=== PATIENT | male | born 1955 | race Caucasian/White ===

== ENCOUNTER 2019-03-23 19:27 | Emergency (ER) | payer OTHER ==
[2019-03-23 19:35] VITALS: BP 146/69; PULSE 85; TEMP 98.2; BMI 32.9
[2019-03-23] MEDS ORDERED: ACETAMINOPHEN 500 MG TABLET (FP) PO ONE (19:58)
--- NOTE | 2019-03-23 19:58 | PDOC ---
Documentation entered by Alexei Feliz SCRIBE, acting as scribe for Danica Burks MD. Danica Burks MD: This documentation has been prepared by the Tray ellis Nirvannie, SCRIBE, under my direction and personally reviewed by me in its entirety. I confirm that the documentation accurately reflects all work, treatment, procedures, and medical decision making performed by me. History of Present Illness - General Chief Complaint: Injury Stated Complaint: INJURY Time Seen by Provider: 03/23/19 19:37 History Source: Patient Exam Limitations: No Limitations - History of Present Illness Initial Comments: 03/23/19 20:07 HPI: The patient is a 64 year old male, with a significant past medical history of spinal fusion (C1-C3), who presents to the emergency department s/p fall with mild discomfort described as a twinge to the neck. As per patient, he was in a reclining chair at home theater at which time he was trying to lean backwards and the chair tipped over and he subsequently fall down from approximately 2 feet. He denies any LOC, dizziness, headache, disorientation, nausea, or vomiting. He denies any recent diarrhea or constipation. He denies any recent chest pain or shortness of breath. He denies any recent dysuria, frequency, urgency or hematuria. PAST MEDICAL HISTORY: no significant history PAST SURGICAL HISTORY: no significant history FAMILY HISTORY: no pertinent history SOCIAL HISTORY: Pt lives with family and is employed. MEDICATIONS: reviewed ALLERGIES: As per nursing notes ROS: General: No fevers or chills, no weakness, no weight loss HEENT: No change in vision. No sore throat,. No ear pain CardioVascular: No chest pain or shortness of breath Respiratory:No cough, or wheezing. Gastrointestinal: no nausea, vomiting, diarrhea or constipation, No rectal bleeding Genitourinary: No dysuria, hematuria, or frequency Musculoskeletal: +Mild neck pain. No joint pain or swelling Neurologic: No headache, vertigo, dizziness or loss of consciousness Psychiatric: nor depression Skin: No rashes or easy bruising Endocrine: no increased thirst or abnormal weight change Allergic: no skin or latex allergy All other systems reviewed and normal Physical Exam: GENERAL: The patient is awake, alert, and fully oriented, in no acute distress. HEAD: Normal with no signs of trauma. No scalp tenderness. NECK: Mild paraspinal cervical tenderness. No midline tenderness. EYES: Pupils equal, round and reactive to light, extraocular movements intact, sclera anicteric, conjunctiva clear. EXTREMITIES: Normal range of motion, no edema. NEUROLOGICAL: Normal speech, normal gait. PSYCH: Normal mood, normal affect. SKIN: Warm, Dry, normal turgor, no rashes or lesions noted. Past History - Past Medical History Allergies/Adverse Reactions: Allergies Allergy/AdvReac Type Severity Reaction Status Date / Time No Known Allergies Allergy Verified 08/05/16 10:56 Home Medications: Ambulatory Orders No Known Home Medication 08/05/16 Anemia: No Asthma: No Cancer: No Cardiac Disorders: No CVA: No COPD: No CHF: No Dementia: No Diabetes: No GI Disorders: No Disorders: No HTN: No Hypercholesterolemia: No Liver Disease: No Seizures: No Thyroid Disease: No - Surgical History Abdominal Surgery: No Appendectomy: No Cardiac Surgery: No Cholecystectomy: No Lung Surgery: No Neurologic Surgery: No Orthopedic Surgery: No - Psycho Social/Smoking Cessation Hx Smoking History: Unknown if ever smoked Have you smoked in the past 12 months: No Information on smoking cessation initiated: No Hx Alcohol Use: Yes (ONCE PER WEEK) Drug/Substance Use Hx: Yes Substance Use Type: Alcohol Hx Substance Use Treatment: No *Physical Exam - Vital Signs Last Vital Signs Temp Pulse Resp BP Pulse Ox 98.2 F 85 16 146/69 95 03/23/19 19:30 03/23/19 19:30 03/23/19 19:30 03/23/19 19:30 03/23/19 19:30 Discharge - Discharge Information Problems reviewed: Yes Clinical Impression/Diagnosis: Cervical strain, acute Qualifiers: Encounter type: initial encounter Qualified Code(s): S16.1XXA - Strain of muscle, fascia and tendon at neck level, initial encounter Condition: Stable Disposition: HOME - Admission No - Follow up/Referral Referrals: Sina Vallecillo [Primary Care Provider] - - Patient Discharge Instructions Additional Instructions: Tylenol or Motrin as needed for neck discomfort or pain. Return to the emergency department immediately with ANY new, persistent or worsening symptoms. Continue any medications as previously prescribed by your physician. You should follow up with your primary doctor as soon as possible regarding today's emergency department visit. . Please make sure your doctor reviews the results of your emergency evaluation. Thank you for coming to the Emergency Department today for your care. It was a pleasure to see you today. Please note that your evaluation is INCOMPLETE until you follow-up with your doctor. - Post Discharge Activity
[2019-03-23] MEDS ORDERED: ACETAMINOPHEN 500 MG TABLET (FP) ONE (20:04)
== END 2019-03-23 20:07 | disposition home or self-care (01) ==
LOC: FER 19:27
DX: S16.1XXA Strain of muscle, fascia and tendon at neck level, initial encounter (principal); Z98.1 Arthrodesis status; W07.XXXA Fall from chair, initial encounter; Y93.89 Activity, other specified; Y92.9 Unspecified place or not applicable
CPT/HCPCS: 99282-25

== ENCOUNTER 2019-05-17 03:24 | Emergency (ER) | payer OTHER ==
--- NOTE | 2019-05-17 03:29 | PDOC ---
History of Present Illness - General Chief Complaint: Injury Stated Complaint: R ANKLE PAIN Time Seen by Provider: 05/17/19 03:27 - History of Present Illness Initial Comments: 05/17/19 03:48 This 64-year-old man with a history of cervical spinal fusion but no other significant past medical history presents with injury to his right ankle: Approximately 6 hours prior to presentation he slipped on icy surface, turning his right ankle as he fell. Although patient was able to walk on the ankle just after he was injured, he has had increasing pain and swelling in the area throughout the evening. No previous history of lower extremity sprain or fracture. No other significant injury sustained today. Patient denies loss of consciousness or neck injury Past History - Past Medical History Allergies/Adverse Reactions: Allergies Allergy/AdvReac Type Severity Reaction Status Date / Time No Known Allergies Allergy Verified 08/05/16 10:56 Home Medications: Ambulatory Orders No Known Home Medication 08/05/16 Anemia: No Asthma: No Cancer: No Cardiac Disorders: No CVA: No COPD: No CHF: No Dementia: No Diabetes: No GI Disorders: No Disorders: No HTN: No Hypercholesterolemia: No Liver Disease: No Seizures: No Thyroid Disease: No - Surgical History Abdominal Surgery: No Appendectomy: No Cardiac Surgery: No Cholecystectomy: No Lung Surgery: No Neurologic Surgery: No Orthopedic Surgery: No - Psycho Social/Smoking Cessation Hx Smoking History: Unknown if ever smoked Have you smoked in the past 12 months: No Hx Alcohol Use: Yes (ONCE PER WEEK) Drug/Substance Use Hx: Yes Substance Use Type: Alcohol Hx Substance Use Treatment: No Review of Systems - Review of Systems Able to Perform ROS?: Yes Comments:: 12 point review of systems is negative except for what is noted in the history of present illness *Physical Exam - Physical Exam GENERAL: Adult male, alert and oriented x3, in no acute distress HEAD: Normal with no signs of trauma. EYES: PERRLA, EOMI, sclera anicteric, conjunctiva clear. EXTREMITIES: Right lower extremitymarked edema lateral malleolus ankle with faint ecchymosis; tenderness medial to and proximal to edematous area No ligamentous instability of ankle joint No tenderness/edema/ecchymosis at base of fifth metatarsal bone Remainder the extremity exam is normal NEUROLOGICAL: Cranial nerves II through XII grossly intact. Normal speech. No focal neurological deficits. MUSCULOSKELETAL: Back non-tender to palpation, no CVA tenderness SKIN: Warm, Dry, normal turgor, no rashes or lesions noted. ED Progress Note - Progress Note Progress Note: Right ankle x-ray performed: Minimally displaced oblique distal fibula fracture present (interpreted by Dr. Barroso of the radiology staff) Posterior leg splint fashioned from Ortho-Glass material and secured with Luis wraps. Distal neurovascular functioning intact after placement of splint. Crutches were fitted to the patient and he was given crutch walking instruction. Referral information for the [facility] provided for the patient. He should contact them later on today and arrange for follow-up within the next 48 hours. Discharge - Discharge Information Problems reviewed: Yes Clinical Impression/Diagnosis: Ankle fracture, right Qualifiers: Encounter type: initial encounter Fracture type: closed Qualified Code(s): S82.891A - Other fracture of right lower leg, initial encounter for closed fracture Condition: Stable Disposition: HOME - Follow up/Referral Referrals: Sina Vallecillo [Primary Care Provider] - Chong Alexandra MD [Staff Physician] - Call tomorrow - Patient Discharge Instructions Patient Printed Discharge Instructions: Ankle Fracture Additional Instructions: Keep splint in place, as dry as possible Elevation/ice to right ankle is much as possible for the next 2 days Crutches for ambulation until seen by orthopedist Call orthopedic group () later this morning arrange follow-up within the next 48 hours Ibuprofen/acetaminophen as needed for pain - Post Discharge Activity
[2019-05-17 03:34] VITALS: BP 128/80; PULSE 100; TEMP 98.6; BMI 31.3
== END 2019-05-17 06:42 | disposition home or self-care (01) ==
LOC: FER 03:24
PROC: 2W3QX1Z Immobilization of Right Lower Leg using Splint (ICD-10-PCS; principal; 2019-05-17)
DX: S82.891A Other fracture of right lower leg, initial encounter for closed fracture (principal); W01.10XA Fall on same level from slipping, tripping and stumbling with subsequent striking against unspecified object, initial encounter; Y93.01 Activity, walking, marching and hiking; Y92.89 Other specified places as the place of occurrence of the external cause
CPT/HCPCS: 73610-TC-RT-FY; 99283-25

== ENCOUNTER 2019-05-25 06:31 | Day surgery (SDC) | payer OTHER ==
[2019-05-24 14:05] VITALS: BMI 31.3
[2019-05-25] MEDS ORDERED: MIDAZOLAM HCL 2 MG/2 ML SINGLE DOSE VIAL ONE ×3 (06:54→09:21)
[2019-05-25] MEDS ORDERED: BUPIVACAINE HCL/PF 0.5% (5 MG/ML) 30 ML VIAL IJ ONE (06:54)
[2019-05-25] MEDS ORDERED: PROPOFOL 20 ML ONE ×3 (07:18→09:44)
[2019-05-25] MEDS ORDERED: ceFAZolin SODIUM 1 GM VIAL ONE (08:22)
[2019-05-25] MEDS ORDERED: KETAMINE HCL 200 MG/20 ML VIAL ONE (08:24)
[2019-05-25] MEDS ORDERED: ONDANSETRON 4 MG/2 ML VIAL ONE ×2 (08:43→10:29)
[2019-05-25] MEDS ORDERED: DEXAMETHASONE SOD PHOSPHATE 4 MG/1 ML VIAL ONE (08:43)
[2019-05-25] MEDS ORDERED: LIDOCAINE HCL 1%, 10 MG/ML (20ML VIAL) ONE (08:48)
[2019-05-25] MEDS ORDERED: ACETAMINOPHEN INJECTION 100 ML IVPB ONE (10:20)
[2019-05-25] MEDS ORDERED: ONDANSETRON 4 MG/2 ML VIAL IVPUSH PRN (10:34)
[2019-05-25] MEDS ORDERED: oxyCODONE HCL 5 MG TABLET PO PRN ×2 (10:34)
[2019-05-25] MEDS ORDERED: PROMETHAZINE HCL 25 MG/1 ML VIAL IVPUSH PRN (10:34)
[2019-05-25] MEDS ORDERED: ACETAMINOPHEN 1000 MG/100 ML VIAL (NON FORMULARY) IVPB ONE (10:35)
--- NOTE | 2019-05-25 10:40 | OP ---
Operative Note - Note: Operative Date: 05/25/19 Pre-Operative Diagnosis: right lateral malleolus fracture Operation: Open reduction Internal fixation of right ankle fracture Post-Operative Diagnosis: Same as Pre-op Surgeon: Agusto Doe Dehydration Plant Operator: Negar Sauceda Anesthesiologist/RN TELEPHONE TRIAGE: Levi Coley Anesthesia: Local (block), MAC Estimated Blood Loss (mls): 50 Fluid Volume Replaced (mls): 900 Operative Report Dictated: Yes
--- NOTE | 2019-05-25 10:41 | SURG ---
Surgery Booking Police Officer Note Booking Police Officer: Negar Sauceda PA-C Date of Service: 05/25/19 Diagnosis: right lateral malleolus fracture Procedure: Open reduction Internal fixation of right ankle fracture I was present for the entirety of the operative procedure. For further detail, please refer to operative report. Visit type - Case Type Case Type: Scheduled - Emergency Emergency Visit: No - New patient This patient is new to me today: Yes Date on this admission: 05/25/19
[2019-05-25] MEDS ORDERED: oxyCODONE HCL 5 MG TABLET ONE (11:43)
[2019-05-25 12:15] VITALS: TEMP 97.6
[2019-05-25 12:20] VITALS: BP 121/71; PULSE 81
--- NOTE | 2019-05-25 18:58 | OP ---
DATE OF OPERATION: 05/25/2019 PREOPERATIVE DIAGNOSIS: Right unstable ankle fracture. POSTOPERATIVE DIAGNOSIS: Right unstable ankle fracture. PROCEDURE: Right ankle open reduction internal fixation. SURGEON: Agusto Mckeon MD SIDING COREBOARD INSPECTOR: Negar Sauceda, physician environmental services assistant, whose skilled full assistance was necessary for the safe and timely performance of this procedure. Ms. Sauceda was able to provide limb positioning, retraction, assist in fracture reduction as well as insertion of orthopaedic fixation hardware. ANESTHESIA: Regional plus sedation. POSTOPERATIVE CONDITION: Stable. COMPLICATIONS: None. IMPLANTS: Arthrex distal fibular plate with 2.7 distal and 3.5-mm proximal locking and nonlocking screws. TOURNIQUET TIME: One hour. INDICATIONS: This is a pleasant gentleman who suffered a trip and fall. He was found to have an unstable ankle fracture in the office. Given his instability, it was recommended we performed operative care. We discussed the option of nonoperative care, casting potentially for nonunion, and posttraumatic instability and arthrosis. I reviewed operative risks in detail including bleeding, infection, neurovascular injury, need for further surgery, postoperative pain and stiffness, nonunion, malunion, hardware failure or cutout. We discussed medical risks such as heart attack, stroke, DVT, PE, or . I addressed the use of perioperative antibiotic and DVT prophylaxis. I addressed all the patient's questions and concerns. He voiced understanding. He elected to proceed. DESCRIPTION OF PROCEDURE: Patient was brought to the operating room after administration of regional block in the preoperative holding area. The right lower extremity was then prepped and draped in the usual sterile fashion. A preoperative dose of antibiotics was given, and the usual time-out procedure was performed. The limb was then exsanguinated, and tourniquet was inflated to 250 mmHg. An incision was planned out over the fibula. This was carried out through skin, subcutaneous tissue. Electrocautery was used to maintain hemostasis. The periosteum was now elevated anteriorly and posteriorly along the midline of the fibula in order to expose the fracture site. The fracture site was now distracted, and soft callus was debrided. It was then irrigated. Fracture reduction clamp was now placed across the fracture site bringing it into anatomic reduction. A small amount of comminution was noted at this time. The comminution was minimal, and therefore, a lag screw placement was deemed appropriate. A 3.5 mm followed by 2.5 mm technique was used, and the lag screw was inserted in anterior dorsal direction. The fracture reduction clamp was now removed, and the fracture was now stable. The neutralization plate was now chosen and affixed to the side of the bone. This was done proximally with 3.5-mm nonlocking screws adjacent to the fracture site and then a locking screw more distal to the fracture site. Distally, 2.7-mm locking screws were used to secure it. The construct was now examined both visually and fluoroscopically. Both fracture reduction and hardware placement were satisfactory. The ankle was now passed through an external rotation stress test. On this, the medial joint space was seen to be widened. Decision was now made to perform syndesmotic fixation. The 3.7-mm drill bit from the TightRope device was now drilled across the fibula and across the tibia parallel to the mortis and aiming slightly anterior. TightRope device was now passed across and then toggled into place securing down the mortis. An external stress test was now repeated, and no widening was seen. At this point, the wound was copiously irrigated. The fascia was closed using 0 Vicryl. The skin was closed using 2-0 Vicryl subcutaneously and 3-0 nylon running suture on the surface. Sterile dressings were placed. The tourniquet was let down after an hour. The patient was transferred to the recovery room in stable condition after being placed into a short-leg bivalve cast. AGUSTO MCKEON M.D. [place]/[id number]
== END 2019-05-25 12:45 | disposition home or self-care (01) ==
LOC: FASU 06:31
PROVIDERS: ATTEND Orthopaedic Surgery Sports Medicine
PROC: 0QSK04Z Reposition Left Fibula with Internal Fixation Device, Open Approach (ICD-10-PCS; principal; 2019-05-25 07:30)
DX: S82.62XA Displaced fracture of lateral malleolus of left fibula, initial encounter for closed fracture (principal); X58.XXXA Exposure to other specified factors, initial encounter; Y93.9 Activity, unspecified; Y92.9 Unspecified place or not applicable
CPT/HCPCS: 73610-TC-RT-FY; 76000-TC-FY; 94760; J0131